=== PATIENT | female | born 1960 | race Caucasian/White ===

== ENCOUNTER 2018-04-02 23:30 | Emergency (ER) | payer BC, OTHER ==
[2018-04-03] MEDS ORDERED: Zofran 4 MG/2 ML VIAL IV ONE (00:20)
[2018-04-03] MEDS ORDERED: TORAdol 30 mg Injection IV ONE (00:20)
[2018-04-03] MEDS ORDERED: GI COCKTAIL 45 ML (Maalox/Lidocaine) PO ONE (00:20)
[2018-04-03] MEDS ORDERED: Pepcid 20 MG VIAL IV ONE ×2 (00:20→01:03)
--- NOTE | 2018-04-03 00:24 | ERPHSYRPT ---
- History of Present Illness Time Seen by Provider: 04/03/18 00:17 Historian: patient, family Exam Limitations: no limitations Patient Subjective Stated Complaint: pt states that she is having chest pain. Triage Nursing Assessment: pt is alert and oriented. pt is ambulatory. pt states that she is having chest pain that is primarily located below her sternum. pt states that she has been having these pains for "about a month" and that sometimes it radiates to "both arms". pt heart sounds strong and regular. pulse of 82. sinus rhythm. pt bowel sounds present x4. pt states that she took "anxiety medication and is now feeling a little better." Physician History: The patient is a 57-year-old female with her complaining of upper epigastric and lower central chest pain that began a couple of hours ago after the patient came home from drinking a few beers. She states she said for 5 beers. She drinks at least 2 or 3 every night. She's had intermittent epigastric and chest pain for 2 months. She thinks it might be associated with her new medicine Linzess that she began 3 months ago. She denies shortness of breath. She denies pain radiation. She denies sweating. She complains of nausea without vomiting. She missed her last appointment with her primary medical doctor and has another appointment in a week. Her past medical history is significant for anxiety, IBS. Timing/Duration: week(s) (2 months), intermittent Activities at Onset: rest Quality: aching Location: central Chest Pain Radiation: no radiation Severity of Pain-Max: moderate Severity of Pain-Current: moderate Modifying Factors: Improves With: nothing Associated Symptoms: nausea, hurts to breathe, No shortness of breath Prior Chest Pain/Cardiac Workup: no prior chest pain Nitro Today/Relief: no nitro taken today Aspirin Treatment Today: no aspirin today Allergies/Adverse Reactions: No Known Drug Allergies Allergy (Unverified 05/01/15 23:23) Home Medications: ALPRAZolam [Xanax 0.5 mg] 0.5 mg PO TID PRN 02/02/15 [History] Hydrocodone Bit/Acetaminophen [[place] 5/325Mg] 1 each PO QID 02/02/15 [History] Linaclotide [Linzess] 145 mcg PO DAILY 04/02/18 [History] Hx Tetanus, Diphtheria Vaccination/Date Given: No Hx Influenza Vaccination/Date Given: No Hx Pneumococcal Vaccination/Date Given: No Immunizations Up to Date: Yes - Review of Systems Constitutional: No Fever, No Chills Eyes: No Symptoms Ears, Nose, & Throat: No Symptoms Respiratory: No Cough, No Dyspnea Cardiac: Chest Pain Abdominal/Gastrointestinal: Abdominal Pain, Nausea Genitourinary Symptoms: No Dysuria Musculoskeletal: No Back Pain, No Neck Pain Skin: No Rash Neurological: No Dizziness, No Focal Weakness, No Sensory Changes Psychological: No Symptoms Endocrine: No Symptoms Hematologic/Lymphatic: No Symptoms Immunological/Allergic: No Symptoms All Other Systems: Reviewed and Negative - Past Medical History Pertinent Past Medical History: Yes Neurological History: No Pertinent History ENT History: No Pertinent History Cardiac History: No Pertinent History Respiratory History: No Pertinent History Endocrine Medical History: No Pertinent History Musculoskeletal History: No Pertinent History GI Medical History: Colitis, Gallbladder Disease History: No Pertinent History Psycho-Social History: Anxiety, Panic Disorder Female Reproductive Disorders: No Pertinent History Other Medical History: back pain - Past Surgical History Past Surgical History: Yes Neuro Surgical History: No Pertinent History Cardiac: No Pertinent History Respiratory: Other Gastrointestinal: Cholecystectomy Genitourinary: No Pertinent History Musculoskeletal: Orthopedic Surgery Female Surgical History: Hysterectomy Other Surgical History: foot rt, back surgery SINUS SURGERY - Social History Smoking Status: Former smoker Exposure to second hand smoke: Yes Drug Use: none Patient Lives Alone: No - Female History Hx Now: No - Nursing Vital Signs Nursing Vital Signs: Initial Vital Signs Temperature 97.8 F 04/02/18 23:31 Pulse Rate 82 04/02/18 23:31 Respiratory Rate 16 04/02/18 23:31 Blood Pressure 140/74 04/02/18 23:31 O2 Sat by Pulse Oximetry 99 04/02/18 23:31 Pain Scale Pain Intensity 5 - Physical Exam General Appearance: mild distress Eye Exam: PERRL/EOMI, eyes nml inspection Ears, Nose, Throat Exam: normal ENT inspection, moist mucous membranes Neck Exam: normal inspection, non-tender, supple, full range of motion Respiratory Exam: normal breath sounds, chest tenderness (central tenderness that reproduces pain), lungs clear, No respiratory distress Cardiovascular Exam: regular rate/rhythm, normal heart sounds Gastrointestinal/Abdomen Exam: tenderness (epigastric) Pelvic Exam: not done Rectal Exam: not done Back Exam: normal inspection, No CVA tenderness, No vertebral tenderness Extremity Exam: normal inspection, normal range of motion Neurologic Exam: alert Skin Exam: normal color, warm, dry SpO2 Interpretation: normal SpO2: 99 Oxygen Delivery: Room Air - Course EKG Interpreted by Me: RATE, Sinus Rhythm, NORMAL AXIS, NORMAL INTERVALS, NORMAL QRS, NORMAL ST-T, Other (no change compared to EKG 05/02/15.) - Radiology Exams Chest X-ray Interpretation: Interpreted by me, Negative Ordered Tests: Active Orders 24 hr Category Date Time Status Clean Catch Urine Specimen STAT Care 04/03/18 00:20 Active EKG-ER Only STAT Care 04/03/18 00:20 Active IV Insertion STAT Care 04/03/18 00:20 Active CHEST 2 VIEWS (PA AND LAT) Stat Exams 04/03/18 00:20 Taken CBC W DIFF Stat Lab 04/03/18 00:10 Completed CMP Stat Lab 04/03/18 00:10 Completed ETHYL ALCOHOL Stat Lab 04/03/18 00:10 Completed LIPASE Stat Lab 04/03/18 00:10 Completed Lactic Acid Stat Lab 04/03/18 00:20 Results TROPONIN Q3H Lab 04/03/18 00:10 Completed TROPONIN Q3H Lab 04/03/18 03:30 Ordered TROPONIN Q3H Lab 04/03/18 06:30 Ordered TROPONIN Q3H Lab 04/03/18 09:30 Ordered TROPONIN Q3H Lab 04/03/18 12:30 Ordered UA W/RFX UR CULTURE Stat Lab 04/03/18 02:00 Completed Medication Summary Generic Name Dose Route Start Last Admin Trade Name Freq PRN Reason Stop Dose Admin Sodium Chloride 1,000 mls @ 999 mls/hr 04/03/18 01:34 04/03/18 01:38 Sodium Chloride 0.9% 1000 Ml IV 04/03/18 02:34 999 mls/hr .Q1H1M STA Administration Discontinued Medications Generic Name Dose Route Start Last Admin Trade Name Freq PRN Reason Stop Dose Admin Al Hydrox/Mg Hydrox/Simethicone Confirm 04/03/18 01:03 Maalox Es 30 Ml Unit Dose Administered 04/03/18 01:04 Dose 30 ml .ROUTE .STK-MED ONE Famotidine 20 mg 04/03/18 00:20 04/03/18 01:09 Pepcid 20 Mg Vial IV 04/03/18 00:21 20 mg STAT ONE Administration Famotidine Confirm 04/03/18 01:03 Pepcid 20 Mg Vial Administered 04/03/18 01:04 Dose 20 mg IV .STK-MED ONE Sodium Chloride Confirm 04/03/18 01:37 Sodium Chloride 0.9% 1000 Ml Administered 04/03/18 01:38 Dose 1,000 mls @ ud .ROUTE .STK-MED ONE Sodium Chloride Confirm 04/03/18 01:56 Sodium Chloride 0.9% 1000 Ml Administered 04/03/18 01:57 Dose 1,000 mls @ ud .ROUTE .STK-MED ONE Ketorolac Tromethamine 30 mg 04/03/18 00:20 04/03/18 01:08 Toradol 30 Mg Injection IV 04/03/18 00:21 30 mg STAT ONE Administration Ketorolac Tromethamine Confirm 04/03/18 01:03 Toradol 30 Mg Injection Administered 04/03/18 01:04 Dose 30 mg .ROUTE .STK-MED ONE Lidocaine HCl Confirm 04/03/18 01:03 Xylocaine Hcl Viscous * Administered 04/03/18 01:04 Dose 15 ml .ROUTE .STK-MED ONE Magnesium Hydroxide 45 ml 04/03/18 00:20 04/03/18 01:08 Gi Cocktail 45 Ml (Maalox/Lidocaine) PO 04/03/18 00:21 45 ml STAT ONE Administration Ondansetron HCl 4 mg 04/03/18 00:20 04/03/18 01:08 Zofran 4 Mg/2 Ml Vial IV 04/03/18 00:21 4 mg STAT ONE Administration Ondansetron HCl Confirm 04/03/18 01:03 Zofran 4 Mg/2 Ml Vial Administered 04/03/18 01:04 Dose 4 mg .ROUTE .STK-MED ONE Potassium Chloride 20 meq 04/03/18 01:48 04/03/18 02:01 Klor Con 10 Meq PO 04/03/18 01:49 20 meq STAT ONE Administration Potassium Chloride Confirm 04/03/18 01:57 Klor Con 10 Meq Administered 04/03/18 01:58 Dose 20 meq PO .STK-MED ONE Lab/Rad Data: Laboratory Result Diagrams 04/03/18 00:10 04/03/18 00:10 Laboratory Results 04/03/18 04/03/18 04/03/18 Range/Units 02:00 00:20 00:10 WBC (4.0-10.5) K/mm3 RBC (4.1-5.4) M/mm3 Hgb (12.0-16.0) gm/dl Hct (35-47) % MCV (78-100) fl MCH (26-32) pg MCHC (32-36) g/dl RDW (11.5-14.0) % Plt Count (150-450) K/mm3 MPV (6-9.5) fl Gran % (36.0-66.0) % Eos # (Auto) (0-0.5) Absolute Lymphs (auto) (1.0-4.6) Absolute Monos (auto) (0.0-1.3) Lymphocytes % (24.0-44.0) % Monocytes % (0.0-12.0) % Eosinophils % (0.00-5.0) % Basophils % (0.0-0.4) % Absolute Granulocytes (1.4-6.9) Basophils # (0-0.4) Sodium (137-145) mmol/L Potassium (3.5-5.1) mmol/L Chloride (98-107) mmol/L Carbon Dioxide (22-30) mmol/L Anion Gap (5-15) MEQ/L BUN (7-17) mg/dL Creatinine (0.52-1.04) mg/dL Estimated GFR ML/MIN Glucose (74-106) mg/dL Lactic Acid 3.2 H (0.4-2.0) Calcium (8.4-10.2) mg/dL Total Bilirubin (0.2-1.3) mg/dL AST (14-36) U/L ALT (0-35) U/L Alkaline Phosphatase (38-126) U/L Troponin I (0.000-0.034) ng/mL Serum Total Protein (6.3-8.2) g/dL Albumin (3.5-5.0) g/dL Lipase (23-300) U/L Ur Collection Type CCMS Urine Color LT.YELLOW (YELLOW) Urine Appearance CLEAR (CLEAR) Urine pH 5.0 (5-6) Ur Specific [place] 1.010 (1.005-1.025) Urine Protein NEGATIVE (Negative) Urine Ketones NEGATIVE (NEGATIVE) Urine Blood NEGATIVE (0-5) [place]/ul Urine Nitrite NEGATIVE (NEGATIVE) Urine Bilirubin NEGATIVE (NEGATIVE) Urine Urobilinogen NORMAL (0-1) mg/dL Ur Leukocyte Esterase NEGATIVE (NEGATIVE) Urine Culture Reflexed NO (NO) Urine Glucose NEGATIVE (NEGATIVE) mg/dL Ethyl Alcohol 125 H (0-10) mg/dL Slides for Path Review Specimen Received 04-03-18 02104/03/18 04/03/18 04/03/18 Range/Units 00:10 00:10 00:10 WBC 7.4 (4.0-10.5) K/mm3 RBC 4.39 (4.1-5.4) M/mm3 Hgb 14.2 (12.0-16.0) gm/dl Hct 41.3 (35-47) % MCV 94.1 (78-100) fl MCH 32.3 H (26-32) pg MCHC 34.4 (32-36) g/dl RDW 12.4 (11.5-14.0) % Plt Count 243 (150-450) K/mm3 MPV 11.7 H (6-9.5) fl Gran % 42.6 (36.0-66.0) % Eos # (Auto) 0.42 (0-0.5) Absolute Lymphs (auto) 3.20 (1.0-4.6) Absolute Monos (auto) 0.58 (0.0-1.3) Lymphocytes % 43.2 (24.0-44.0) % Monocytes % 7.8 (0.0-12.0) % Eosinophils % 5.7 H (0.00-5.0) % Basophils % 0.7 (0.0-0.4) % Absolute Granulocytes 3.16 (1.4-6.9) Basophils # 0.05 (0-0.4) Sodium 142 (137-145) mmol/L Potassium 3.2 L (3.5-5.1) mmol/L Chloride 105 (98-107) mmol/L Carbon Dioxide 23 (22-30) mmol/L Anion Gap 17.4 H (5-15) MEQ/L BUN 7 (7-17) mg/dL Creatinine 0.51 L (0.52-1.04) mg/dL Estimated GFR > 60.0 ML/MIN Glucose 93 (74-106) mg/dL Lactic Acid (0.4-2.0) Calcium 9.6 (8.4-10.2) mg/dL Total Bilirubin 0.30 (0.2-1.3) mg/dL AST 37 H (14-36) U/L ALT 21 (0-35) U/L Alkaline Phosphatase 86 (38-126) U/L Troponin I < 0.012 (0.000-0.034) ng/mL Serum Total Protein 8.5 H (6.3-8.2) g/dL Albumin 5.1 H (3.5-5.0) g/dL Lipase 57 (23-300) U/L Ur Collection Type Urine Color (YELLOW) Urine Appearance (CLEAR) Urine pH (5-6) Ur Specific [place] (1.005-1.025) Urine Protein (Negative) Urine Ketones (NEGATIVE) Urine Blood (0-5) [place]/ul Urine Nitrite (NEGATIVE) Urine Bilirubin (NEGATIVE) Urine Urobilinogen (0-1) mg/dL Ur Leukocyte Esterase (NEGATIVE) Urine Culture Reflexed (NO) Urine Glucose (NEGATIVE) mg/dL Ethyl Alcohol (0-10) mg/dL Slides for Path Review YES Specimen Received - Progress Progress: improved Counseled pt/family regarding: lab results, diagnosis, need for follow-up, rad results - Departure Time of Disposition: 02:00 Departure Disposition: Home Clinical Impression: Gastritis, Hypokalemia, Alcohol intoxication Condition: Stable Critical Care Time: No Referrals: TEISHA LEVINE MD [Primary Care Provider] - Additional Instructions: You had an episode of gastritis. you also have low serum potassium. You were given a GI cocktail and potassium 20 mEq orally and fluids by IV in the ER. Please follow-up with your primary medical doctor for further evaluation this week.
[2018-04-03 00:32] LABS: BASOPHIL % 0.7 % (0.0-0.4); Basophil (Absolute #) 0.05 (0-0.4); Eosinophil % 5.7 % (0.00-5.0); Eosinophil (Absolute #) 0.42 (0-0.5); Granulocyte Absolute (ANC) 3.16 (1.4-6.9); Granulocytes % 42.6 % (36.0-66.0); Hematocrit 41.3 % (35-47); Hemoglobin 14.2 gm/dl (12.0-16.0); Lymphocytes % 43.2 % (24.0-44.0); Mean Cell Volume 94.1 fl (78-100); Mean Corpuscular Hemoglobin 32.3 pg (26-32); Mean Corpuscular Hgb Concent. 34.4 g/dl (32-36); Mean Platelet Volume 11.7 fl (6-9.5); Monocyte (Absolute #) 0.58 (0.0-1.3); Monocytes % 7.8 % (0.0-12.0); Platelet Count 243 K/mm3 (150-450); Red Blood Count 4.39 M/mm3 (4.1-5.4); Red Cell Distribution Width 12.4 % (11.5-14.0); White Blood Count 7.4 K/mm3 (4.0-10.5)
[2018-04-03 00:41] LABS: Lactic Acid 3.2 (0.4-2.0)
[2018-04-03 00:54] LABS: ALBUMIN 5.1 g/dL (3.5-5.0); ALKALINE PHOSPHATASE 86 U/L (38-126); ANION GAP 17.4 MEQ/L (5-15); BLOOD UREA NITROGEN 7 mg/dL (7-17); CHLORIDE 105 mmol/L (98-107); Calcium 9.6 mg/dL (8.4-10.2); Carbon Dioxide 23 mmol/L (22-30); Creatinine 1 0.51 mg/dL (0.52-1.04); Glucose 93 mg/dL (74-106); LIPASE 57 U/L (23-300); Potassium 3.2 mmol/L (3.5-5.1); SGOT/AST 37 U/L (14-36); SGPT/ALT 21 U/L (0-35); SODIUM 142 mmol/L (137-145); Total Protein 8.5 g/dL (6.3-8.2)
[2018-04-03] MEDS ORDERED: MAALOX ES 30 ML UNIT DOSE ONE (01:03)
[2018-04-03] MEDS ORDERED: Zofran 4 MG/2 ML VIAL ONE (01:03)
[2018-04-03] MEDS ORDERED: TORAdol 30 mg Injection ONE (01:03)
[2018-04-03] MEDS ORDERED: XYLOCAINE HCl Viscous ONE (01:03)
[2018-04-03 01:19] VITALS: PULSE 76
[2018-04-03] MEDS ORDERED: Sodium Chloride 0.9% 1000 ML 1,000 ML IV STA (01:34)
[2018-04-03 01:35] VITALS: O2SAT 99
[2018-04-03] MEDS ORDERED: Sodium Chloride 0.9% 1000 ML 1,000 ML ONE ×2 (01:37→01:56)
[2018-04-03 01:43] LABS: Slide Review 1 YES
[2018-04-03] MEDS ORDERED: Klor Con 10 MEQ PO ONE ×3 (01:48→02:26)
[2018-04-03 01:56] VITALS: BP 98/54
[2018-04-03 02:10] LABS: Appearance CLEAR (CLEAR); Bilirubin NEGATIVE (NEGATIVE); Blood NEGATIVE Ery/ul (0-5); Glucose NEGATIVE (NEGATIVE); Ketones NEGATIVE (NEGATIVE); Leukocyte Esterase NEGATIVE (NEGATIVE); Nitrite NEGATIVE (NEGATIVE); Protein,Urine Dip NEGATIVE (Negative); Urobilinogen NORMAL mg/dL (0-1)
--- NOTE | 2018-04-03 20:36 | XRAY ---
Exam: Two-view chest from 04/03/2018. Comparison: [facility] portal chest film from 05/02/2015. Indication: Chest pain. Findings: Upright PA and lateral chest films are submitted for evaluation. The heart size and contour are normal. The dennis and mediastinal structures appear unremarkable. EKG leads are seen in place. There is average inflation of the lungs. The lungs appear clear. Pulmonary vascularity is normal. No pneumothorax or pleural fluid is seen. Surgical clips consistent with prior cholecystectomy are seen. The bones are mildly demineralized. No acute osseous process is seen. Impression: 1. No acute cardiopulmonary disease is seen, no change from 05/02/2015.
== END 2018-04-03 02:46 | disposition home or self-care (01) ==
LOC: ED 23:30
DX: K29.70 Gastritis, unspecified, without bleeding (principal); E87.6 Hypokalemia; F10.129 Alcohol abuse with intoxication, unspecified; R11.0 Nausea; R07.9 Chest pain, unspecified; Z79.899 Other long term (current) drug therapy
CPT/HCPCS: 36000; 36415; 71046; 80053; 80307; 81002; 83605; 83690; 84484; 85025; 93005; 96374; 96375; 99284; J1885; J2405; A9270-GY; G0480

== ENCOUNTER 2019-09-13 02:13 | Emergency (ER) | payer BC, OTHER ==
[2019-09-13] MEDS ORDERED: Ativan 1 MG PO ONE (02:20)
--- NOTE | 2019-09-13 02:28 | ERPHSYRPT ---
- History of Present Illness Time Seen by Provider: 09/13/19 02:19 Source: patient, EMS Exam Limitations: no limitations Physician History: 59-year-old female with a long history of anxiety states she went to fill her chronic narcotic and her Ativan prescription at the same time this weekend and was told by the pharmacist they cannot fill both and "threw away my Ativan prescription". States she has been out for 2 days now. States she was awoken from sleep one hour ago feeling that her heart was racing and she was short of breath. She was thinking about her who recently in this hospital over the last several months. She denies recent chest pain shortness of breath nausea vomiting or other medical complaints. patient states she found a half of an Ativan tablet on the floor prior to EMS arrival to that and began to feel better shortly thereafter. PMH: Patient endorses a history of hyperlipidemia and anxiety Social: Patient endorses tobacco use Allergies/Adverse Reactions: No Known Drug Allergies Allergy (Unverified 05/01/15 23:23) Home Medications: ALPRAZolam [Xanax 0.5 mg] 0.5 mg PO TID PRN 02/02/15 [History] Hydrocodone Bit/Acetaminophen [[place] 5/325Mg] 1 each PO QID 02/02/15 [History] Linaclotide [Linzess] 145 mcg PO DAILY 04/02/18 [History] Hx Tetanus, Diphtheria Vaccination/Date Given: No Hx Influenza Vaccination/Date Given: No Hx Pneumococcal Vaccination/Date Given: No - Review of Systems Constitutional: No Fever, No Chills Eyes: No Symptoms Ears, Nose, & Throat: No Symptoms Respiratory: Dyspnea, No Cough Cardiac: Palpitations, No Chest Pain, No Edema, No Syncope Abdominal/Gastrointestinal: No Abdominal Pain, No Nausea, No Vomiting, No Diarrhea Genitourinary Symptoms: No Dysuria Musculoskeletal: No Back Pain, No Neck Pain Skin: No Rash Neurological: No Dizziness, No Focal Weakness, No Sensory Changes Psychological: No Symptoms Endocrine: No Symptoms All Other Systems: Reviewed and Negative - Past Medical History Pertinent Past Medical History: Yes Neurological History: No Pertinent History ENT History: No Pertinent History Cardiac History: No Pertinent History Respiratory History: No Pertinent History Endocrine Medical History: No Pertinent History Musculoskeletal History: No Pertinent History GI Medical History: Colitis, Gallbladder Disease History: No Pertinent History Psycho-Social History: Anxiety, Panic Disorder Female Reproductive Disorders: No Pertinent History Other Medical History: back pain - Past Surgical History Past Surgical History: Yes Neuro Surgical History: No Pertinent History Cardiac: No Pertinent History Respiratory: Other Gastrointestinal: Cholecystectomy Genitourinary: No Pertinent History Musculoskeletal: Orthopedic Surgery Female Surgical History: Hysterectomy Other Surgical History: foot rt, back surgery SINUS SURGERY - Social History Smoking Status: Former smoker Exposure to second hand smoke: Yes Drug Use: none Patient Lives Alone: No - Physical Exam General Appearance: no apparent distress, alert Eye Exam: PERRL/EOMI, eyes nml inspection Ears, Nose, Throat Exam: normal ENT inspection, TMs normal, pharynx normal, moist mucous membranes Neck Exam: normal inspection, non-tender, supple, full range of motion Respiratory Exam: normal breath sounds, lungs clear, No respiratory distress Cardiovascular Exam: regular rate/rhythm, normal heart sounds, normal peripheral pulses Gastrointestinal/Abdomen Exam: soft, normal bowel sounds, No tenderness, No mass Back Exam: normal inspection, normal range of motion, No CVA tenderness, No vertebral tenderness Extremity Exam: normal inspection, normal range of motion, pelvis stable Neurologic Exam: alert, oriented x 3, cooperative, normal mood/affect, nml cerebellar function, nml station & gait, sensation nml, No motor deficits Skin Exam: normal color, warm, dry, No rash Lymphatic Exam: No adenopathy - Course EKG Interpreted by Me: RATE (87), NORMAL AXIS, NORMAL INTERVALS, NORMAL QRS, NORMAL ST-T Ordered Tests: Active Orders 24 hr Category Date Time Status EKG-ER Only STAT Care 09/13/19 02:19 Ordered - Progress Progress: improved Progress Note: patient almost certainly suffering from an anxiety attack to inability to fill her medications and recent new life stresses.. She appears well and has normal vital signs. She has a nonischemic EKG without propensity towards dysrhythmia. She has good outpatient followup.. She does not warrant further aggressive imaging or labs for a ACS, PE or other emergency etiology without a chest pain complaint and her normal vitals. 09/13/19 02:22 - Departure Departure Disposition: Home Clinical Impression: Anxiety Condition: Good Critical Care Time: No Referrals: TIESHA LEVINE MD [Primary Care Provider] - Prescriptions: ALPRAZolam [Alprazolam] 0.5 mg PO TID PRN 2 Days #6 tablet
[2019-09-13 02:40] VITALS: BP 143/75; PULSE 89
[2019-09-13] MEDS ORDERED: Ativan 1 MG ONE (02:40)
== END 2019-09-13 03:20 | disposition home or self-care (01) ==
LOC: ED 02:13
DX: F41.9 Anxiety disorder, unspecified (principal)
CPT/HCPCS: 36000; 93005; 99284; A9270-GY

== ENCOUNTER 2022-05-06 18:19 | Emergency (ER) | payer OTHER ==
--- NOTE | 2022-05-06 19:20 | ERPHSYRPT ---
- History of Present Illness Time Seen by Provider: 05/06/22 18:33 Historian: patient Exam Limitations: no limitations Patient Subjective Stated Complaint: Pt states that she is constipated and has tried everything, hasn't had a bowel movement since Sunday Triage Nursing Assessment: Pt brought to the ER by her friend, tachycardic, rates abdominal pain as 8/10, unable to sit on her bottom due to the pain, has bowel problems and is currently waiting on her doctor to schedule her for a colonoscopy, bowel sounds heard in all 4 quadrants, abdomen is distended, pulses normal, skin n/w/d, doesn't appear to be in any distress Physician History: 61 years old female history of constipation in the past presented in the ER with abdominal pain and inability to have a bowel movement. Patient reports she has tried multiple [id number] laxatives including enema with no relief. She is having difficulty sitting because of hard stool. Reports it Stayer but not coming out. No nausea or vomiting reported. Does report having similar symptoms in the past. Timing/Duration: yesterday, gradual onset, worse Quality: pressure, sharpness Abdominal Pain Onset Location: other (Lower abdomen/perirectal area) Severity of Pain-Max: severe Severity of Pain-Current: moderate Modifying Factors: Worsens With: position Associated Symptoms: denies symptoms Previous symptoms: same symptoms as today Allergies/Adverse Reactions: No Known Drug Allergies Allergy (Verified 05/06/22 18:41) Home Medications: ALPRAZolam [Xanax 0.5 mg] 1 mg PO TID PRN 02/02/15 [History] Hx Tetanus, Diphtheria Vaccination/Date Given: No Hx Influenza Vaccination/Date Given: No Hx Pneumococcal Vaccination/Date Given: No Travel Risk - International Travel Have you traveled outside of the country in past 3 weeks: No - Coronavirus Screening Are you exhibiting any of the following symptoms?: No Close contact with a COVID-19 positive Pt in past 14-21 Days: No - Vaccine Status Have you recieved a Covid-19 vaccination: No - Review of Systems Constitutional: No Symptoms Eyes: No Symptoms Ears, Nose, & Throat: No Symptoms Respiratory: No Symptoms Cardiac: No Symptoms Abdominal/Gastrointestinal: Abdominal Pain, Constipation Genitourinary Symptoms: No Symptoms Musculoskeletal: No Symptoms Neurological: No Symptoms Hematologic/Lymphatic: No Symptoms Immunological/Allergic: No Symptoms - Past Medical History Pertinent Past Medical History: Yes Neurological History: No Pertinent History ENT History: No Pertinent History Cardiac History: No Pertinent History Respiratory History: No Pertinent History Endocrine Medical History: No Pertinent History Musculoskeletal History: No Pertinent History GI Medical History: Colitis, Gallbladder Disease History: No Pertinent History Psycho-Social History: Anxiety, Panic Disorder Female Reproductive Disorders: No Pertinent History Other Medical History: back pain - Past Surgical History Past Surgical History: Yes Neuro Surgical History: No Pertinent History Cardiac: No Pertinent History Respiratory: Other Gastrointestinal: Cholecystectomy Genitourinary: No Pertinent History Musculoskeletal: Orthopedic Surgery Female Surgical History: Hysterectomy Other Surgical History: foot rt, back surgery SINUS SURGERY - Social History Smoking Status: Former smoker Exposure to second hand smoke: Yes Drug Use: none Patient Lives Alone: Yes - Nursing Vital Signs Nursing Vital Signs: Initial Vital Signs Temperature 98.8 F 05/06/22 18:30 Pulse Rate 103 H 05/06/22 18:30 Blood Pressure 135/79 05/06/22 18:30 O2 Sat by Pulse Oximetry 99 05/06/22 18:30 Pain Scale Pain Intensity 8 - Physical Exam General Appearance: no apparent distress, alert Eye Exam: PERRL/EOMI Neck Exam: normal inspection, full range of motion Respiratory Exam: normal breath sounds, lungs clear Cardiovascular Exam: regular rate/rhythm, normal heart sounds Gastrointestinal/Abdomen Exam: soft, normal bowel sounds, tenderness (Left flank/lower abdomen), No guarding, No rebound Back Exam: normal inspection, No CVA tenderness Extremity Exam: normal inspection, normal range of motion Neurologic Exam: alert, oriented x 3, cooperative Skin Exam: normal color SpO2 Interpretation: normal SpO2: 99 O2 Delivery: Room Air Ordered Tests: Active Orders 24 hr Category Date Time Status KUB Stat Exams 05/06/22 19:41 Taken - Progress Progress: improved, re-examined Progress Note: 05/06/22 20:34 61 years old is evaluated for abdominal pain/constipation. X-rays showed moderate stool load. Soapsuds enema is ordered but patient before getting enema had multiple bowel movements and feeling better. Do not think patient needs soapsuds enema, recommended MiraLAX and stool softener regularly and outpatient follow-up. Discussed signs symptoms of worsening needing return to ER which she seemed understanding. Counseled pt/family regarding: diagnosis, need for follow-up, rad results - Departure Departure Disposition: Home Clinical Impression: Constipation Condition: Referrals: TIESHA LEVINE MD [Primary Care Provider] - Follow Up with PCP/3 days Instructions: Constipation, Adult (DC) Additional Instructions: Take daily MiraLAX and stool softener. Increase fiber in diet. Follow-up with primary care for reevaluation. Return to ER for any worsening. Prescriptions: Polyethylene Glycol 3350 17 gm [Miralax Powder 17GM PACKET] 17 gm PO DAILY #30 packet
[2022-05-06 20:57] VITALS: BP 101/72; PULSE 125; O2SAT 96
--- NOTE | 2022-05-06 21:38 | XRAY ---
Indication: Abdomen pain and constipation. Comparison: None KUB nonacute and nonobstructed with moderate fecal debris in the left hemicolon and rectum. Incidental cholecystectomy clips. Osseous structures intact with mild osteopenia. Comment: Preliminary interpretation made by [facility]. No critical discrepancy.
== END 2022-05-06 20:55 | disposition home or self-care (01) ==
LOC: ED 18:19
DX: K59.00 Constipation, unspecified (principal); R10.2 Pelvic and perineal pain; Z28.310 Unvaccinated for COVID-19
CPT/HCPCS: 74018; 99282